=== PATIENT | male | born 1960 | race Asian ===

== ENCOUNTER 2018-03-21 15:45 | Emergency (ER) | payer BC ==
[~2018-03-21] VITALS: Ht 180.3 cm; Wt 90.7 kg
[2018-03-21 18:45] LABS: PLATELET COUNT 308 K/uL (142-355)
[2018-03-21 18:56] LABS: POTASSIUM 4.6 mmol/L (3.6-5.2)
[2018-03-21 20:21] VITALS: BP 149/111; TEMP 98.3
== END 2018-03-21 20:22 | disposition home or self-care (01) ==
LOC: ED 15:45
PROVIDERS: Internal Medicine
DX: J40 Bronchitis, not specified as acute or chronic (principal); J44.9 Chronic obstructive pulmonary disease, unspecified; I10 Essential (primary) hypertension; I51.7 Cardiomegaly; R80.9 Proteinuria, unspecified
CPT/HCPCS: 80053; 81000; 85027; 87651; 99283

== ENCOUNTER 2019-09-28 09:25 | Outpatient (CLI) | payer OTHER | END 2019-09-28 19:43 | disposition home or self-care (01) | LOC: RAD 09:25 | DX: I50.9 Heart failure, unspecified (principal); H54.50 Low vision, one eye, unspecified eye ==

== ENCOUNTER 2019-11-03 13:39 | Emergency (ER) | payer OTHER ==
[~2019-11-03] VITALS: Ht 180.3 cm; Wt 77.1 kg
[2019-11-03 15:35] VITALS: BP 105/67; TEMP 98.5
== END 2019-11-03 15:36 | disposition home or self-care (01) ==
LOC: ED 13:39
DX: S39.011A Strain of muscle, fascia and tendon of abdomen, initial encounter (principal)
CPT/HCPCS: 81000; 96372; 99283; J1885

== ENCOUNTER 2020-06-21 11:23 | Outpatient (CLI) | payer OTHER ==
[2020-06-21 11:43] LABS: POTASSIUM 3.6 mmol/L (3.6-5.2)
== END 2020-06-21 20:33 | disposition home or self-care (01) ==
LOC: LABW 11:23
PROVIDERS: ATTEND Physician Assistant
DX: N17.9 Acute kidney failure, unspecified (principal)
CPT/HCPCS: 36415; 80048; 83735

== ENCOUNTER 2020-12-15 21:57 | Observation (INO) | payer OTHER ==
[~2020-12-15] VITALS: Ht 180.3 cm; Wt 91.8 kg
[2020-12-15 22:15] VITALS: BP 109/76; TEMP 97.7
[2020-12-15 22:48] LABS: PLATELET COUNT 208 K/uL (142-355)
[2020-12-15 23:05] LABS: POTASSIUM 4.9 mmol/L (3.6-5.2)
[2020-12-16 04:55] VITALS: BP 109/79; TEMP 96.7; Ht 180.3 cm; Wt 91.8 kg
[2020-12-16 07:23] LABS: POTASSIUM 3.8 mmol/L (3.6-5.2)
[2020-12-16 08:00] VITALS: BP 101/75; TEMP 97.7
[2020-12-16 12:00] VITALS: BP 109/85; TEMP 97.6
[2020-12-16 16:00] VITALS: BP 101/78; TEMP 97.4
[2020-12-16 20:00] VITALS: BP 108/76; TEMP 97.8
[2020-12-17] VITALS: BP 114/77; TEMP 98.4
[2020-12-17 04:00] VITALS: BP 117/76; TEMP 97.5
[2020-12-17 05:49] LABS: PLATELET COUNT 192 K/uL (142-355)
[2020-12-17 05:54] LABS: POTASSIUM 3.4 mmol/L (3.6-5.2)
[2020-12-17 08:00] VITALS: BP 114/82; TEMP 97.9
[2020-12-17 12:00] VITALS: BP 111/74; TEMP 97.9
[2020-12-17 16:00] VITALS: BP 117/91; TEMP 97.7
[2020-12-17 20:00] VITALS: BP 110/80; TEMP 97.5
[2020-12-18 00:26] VITALS: BP 109/64; TEMP 97.7
[2020-12-18 04:00] VITALS: BP 108/81; TEMP 97.8
[2020-12-18 05:29] LABS: PLATELET COUNT 204 K/uL (142-355)
[2020-12-18 05:41] LABS: POTASSIUM 3.2 mmol/L (3.6-5.2)
[2020-12-18 08:00] VITALS: BP 114/75; TEMP 97.9
[2020-12-18] MEDS ORDERED: FUROSEMIDE40 MG PO (11:50)
[2020-12-18] MEDS ORDERED: CARV3.12 PO (11:55)
[2020-12-18] MEDS ORDERED: POTA20TA4 PO (11:55)
[2020-12-18] MEDS ORDERED: APIX1TAB PO (11:55)
== END 2020-12-18 13:00 | disposition home or self-care (01) ==
LOC: ED 21:57 → MED/SURG 12-16 02:54
PROVIDERS: ADMIT Family Medicine; ATTEND Internal Medicine Endocrinology, Diabetes & Metabolism
DX: I13.0 Hypertensive heart and chronic kidney disease with heart failure and stage 1 through stage 4 chronic kidney disease, or unspecified chronic kidney disease (principal); E87.1 Hypo-osmolality and hyponatremia; I25.10 Atherosclerotic heart disease of native coronary artery without angina pectoris; R94.5 Abnormal results of liver function studies; E87.6 Hypokalemia; N18.30 Chronic kidney disease, stage 3 unspecified; I50.9 Heart failure, unspecified; N17.8 Other acute kidney failure
CPT/HCPCS: 36415; 80053; 81000; 82550; 83880; 84484; 85027; 87635; 93005; 96374; 96376; 99220; 99284; G0378; J1940; U0003

== ENCOUNTER 2021-04-02 14:04 | Outpatient (CLI) | payer OTHER ==
[~2021-04-02 14:04] MED LIST: APIX1TAB PO; CARV3.12 PO; FUROSEMIDE40 MG PO; POTA20TA4 PO
== END 2021-04-02 19:22 | disposition home or self-care (01) ==
LOC: RESP 14:04
PROVIDERS: ATTEND Internal Medicine Cardiovascular Disease
DX: Z01.818 Encounter for other preprocedural examination (principal); Q24.9 Congenital malformation of heart, unspecified; I50.9 Heart failure, unspecified

== ENCOUNTER 2021-05-06 11:41 | Outpatient (CLI) | payer OTHER ==
[2021-05-06 12:39] LABS: PLATELET COUNT 526 K/uL (142-355)
[2021-05-06 12:45] LABS: POTASSIUM 3.6 mmol/L (3.6-5.2)
== END 2021-05-06 20:10 | disposition home or self-care (01) ==
LOC: INF 11:41
PROVIDERS: ATTEND Internal Medicine
DX: I50.22 Chronic systolic (congestive) heart failure (principal); Z95.811 Presence of heart assist device; Z79.01 Long term (current) use of anticoagulants
CPT/HCPCS: 36415; 80053; 83735; 85027; 85610

== ENCOUNTER 2021-05-15 11:15 | Outpatient (CLI) | payer OTHER ==
[2021-05-15 11:47] LABS: PLATELET COUNT 428 K/uL (142-355)
[2021-05-15 12:00] LABS: POTASSIUM 3.4 mmol/L (3.6-5.2)
== END 2021-05-15 18:53 | disposition home or self-care (01) ==
LOC: LABW 11:15
PROVIDERS: ATTEND Internal Medicine Cardiovascular Disease
DX: I50.22 Chronic systolic (congestive) heart failure (principal); Z95.811 Presence of heart assist device; Z79.01 Long term (current) use of anticoagulants
CPT/HCPCS: 36415; 80053; 83735; 85027; 85610

== ENCOUNTER 2021-05-29 11:17 | Outpatient (CLI) | payer OTHER | END 2021-05-29 19:12 | disposition home or self-care (01) | LOC: LABW 11:17 | PROVIDERS: ATTEND Internal Medicine | DX: I50.22 Chronic systolic (congestive) heart failure (principal); Z79.01 Long term (current) use of anticoagulants; Z95.811 Presence of heart assist device | CPT/HCPCS: 36415; 85610 ==

== ENCOUNTER 2021-06-10 10:12 | Outpatient (CLI) | payer OTHER | END 2021-06-10 19:52 | disposition home or self-care (01) | LOC: LABW 10:12 | PROVIDERS: ATTEND Internal Medicine | DX: I50.22 Chronic systolic (congestive) heart failure (principal); Z79.01 Long term (current) use of anticoagulants; Z95.811 Presence of heart assist device | CPT/HCPCS: 36415; 85610 ==

== ENCOUNTER 2021-06-17 07:07 | Emergency (ER) | payer OTHER ==
[~2021-06-17] VITALS: Ht 180.3 cm; Wt 74.8 kg
[2021-06-17 07:07] VITALS: TEMP 97.2
[2021-06-17 07:38] LABS: PLATELET COUNT 225 K/uL (142-355)
[2021-06-17 07:53] LABS: PARTIAL THROMBOPLASTIN TIME 32.4 SECONDS (24.5-33.6)
[2021-06-17 07:59] LABS: POTASSIUM 3.4 mmol/L (3.6-5.2)
[2021-06-17 08:59] VITALS: BP 114/97
== END 2021-06-17 09:27 | disposition home or self-care (01) ==
LOC: ED 07:07
PROVIDERS: Hospitalist
PROC: 2Y41X5Z Packing of Nasal Region using Packing Material (ICD-10-PCS; principal; 2021-06-17)
DX: R04.0 Epistaxis (principal)
CPT/HCPCS: 80048; 80320; 85027; 85610; 85730; 99282

== ENCOUNTER 2021-06-24 10:12 | Outpatient (CLI) | payer OTHER | END 2021-06-24 18:57 | disposition home or self-care (01) | LOC: LABW 10:12 | PROVIDERS: ATTEND Internal Medicine | DX: I50.22 Chronic systolic (congestive) heart failure (principal); Z79.01 Long term (current) use of anticoagulants; Z95.811 Presence of heart assist device | CPT/HCPCS: 36415; 85610 ==

== ENCOUNTER 2021-06-27 10:11 | Outpatient (CLI) | payer OTHER | END 2021-06-27 19:29 | disposition home or self-care (01) | LOC: LABW 10:11 | PROVIDERS: ATTEND Internal Medicine | DX: I50.22 Chronic systolic (congestive) heart failure (principal); Z79.01 Long term (current) use of anticoagulants; Z95.811 Presence of heart assist device | CPT/HCPCS: 36415; 85610 ==

== ENCOUNTER 2021-07-01 10:18 | Outpatient (CLI) | payer OTHER | END 2021-07-01 19:01 | disposition home or self-care (01) | LOC: LABW 10:18 | PROVIDERS: ATTEND Internal Medicine | DX: I50.22 Chronic systolic (congestive) heart failure (principal); Z79.01 Long term (current) use of anticoagulants; Z95.811 Presence of heart assist device | CPT/HCPCS: 36415; 85610 ==

== ENCOUNTER 2021-07-15 10:06 | Outpatient (CLI) | payer OTHER | END 2021-07-15 18:57 | disposition home or self-care (01) | LOC: LABW 10:06 | PROVIDERS: ATTEND Internal Medicine | DX: I50.22 Chronic systolic (congestive) heart failure (principal); Z79.01 Long term (current) use of anticoagulants; Z95.811 Presence of heart assist device | CPT/HCPCS: 36415; 85610 ==

== ENCOUNTER → 2021-07-29 | Outpatient (CLI) | payer OTHER | LOC: LABW 10:19 | PROVIDERS: ATTEND Internal Medicine | DX: I50.22 Chronic systolic (congestive) heart failure (principal); Z79.01 Long term (current) use of anticoagulants; Z95.811 Presence of heart assist device | CPT/HCPCS: 36415; 85610 ==

== ENCOUNTER 2021-08-14 09:16 | Outpatient (CLI) | payer OTHER | END 2021-08-14 19:20 | disposition home or self-care (01) | LOC: LABW 09:16 | PROVIDERS: ATTEND Internal Medicine | DX: I50.22 Chronic systolic (congestive) heart failure (principal); Z79.01 Long term (current) use of anticoagulants; Z95.811 Presence of heart assist device | CPT/HCPCS: 36415; 85610 ==

== ENCOUNTER 2021-08-21 09:12 | Outpatient (CLI) | payer OTHER | END 2021-08-21 18:54 | disposition home or self-care (01) | LOC: LABW 09:12 | PROVIDERS: ATTEND Internal Medicine | DX: I50.22 Chronic systolic (congestive) heart failure (principal); Z79.01 Long term (current) use of anticoagulants; Z95.811 Presence of heart assist device | CPT/HCPCS: 36415; 85610 ==

== ENCOUNTER 2021-09-04 10:28 | Outpatient (CLI) | payer OTHER | END 2021-09-04 18:54 | disposition home or self-care (01) | LOC: LABW 10:28 | PROVIDERS: ATTEND Internal Medicine | DX: I50.22 Chronic systolic (congestive) heart failure (principal); Z79.01 Long term (current) use of anticoagulants; Z95.811 Presence of heart assist device | CPT/HCPCS: 36415; 85610 ==

== ENCOUNTER 2021-09-12 10:03 | Outpatient (CLI) | payer OTHER | END 2021-09-12 19:04 | disposition home or self-care (01) | LOC: LABW 10:03 | PROVIDERS: ATTEND Internal Medicine | DX: I50.22 Chronic systolic (congestive) heart failure (principal); Z79.01 Long term (current) use of anticoagulants; Z95.811 Presence of heart assist device | CPT/HCPCS: 36415; 85610 ==

== ENCOUNTER 2021-09-18 10:07 | Outpatient (CLI) | payer OTHER | END 2021-09-18 19:18 | disposition home or self-care (01) | LOC: LABW 10:07 | PROVIDERS: ATTEND Internal Medicine | DX: I50.22 Chronic systolic (congestive) heart failure (principal); Z79.01 Long term (current) use of anticoagulants; Z95.811 Presence of heart assist device | CPT/HCPCS: 36415; 85610 ==

== ENCOUNTER 2021-10-02 09:38 | Outpatient (CLI) | payer OTHER | END 2021-10-02 19:22 | disposition home or self-care (01) | LOC: LABW 09:38 | PROVIDERS: ATTEND Internal Medicine | DX: I50.22 Chronic systolic (congestive) heart failure (principal); Z79.01 Long term (current) use of anticoagulants; Z95.811 Presence of heart assist device | CPT/HCPCS: 36415; 85610 ==

== ENCOUNTER 2021-10-08 09:19 | Outpatient (CLI) | payer OTHER | END 2021-10-08 21:34 | disposition home or self-care (01) | LOC: LABW 09:19 | PROVIDERS: ATTEND Internal Medicine | DX: I50.22 Chronic systolic (congestive) heart failure (principal); Z79.01 Long term (current) use of anticoagulants; Z95.811 Presence of heart assist device | CPT/HCPCS: 36415; 85610 ==

== ENCOUNTER 2021-10-17 09:17 | Outpatient (CLI) | payer OTHER | END 2021-10-17 19:23 | disposition home or self-care (01) | LOC: LABW 09:17 | PROVIDERS: ATTEND Internal Medicine | DX: I50.22 Chronic systolic (congestive) heart failure (principal); Z79.01 Long term (current) use of anticoagulants; Z95.811 Presence of heart assist device | CPT/HCPCS: 36415; 85610 ==

== ENCOUNTER 2021-10-23 09:09 | Outpatient (CLI) | payer OTHER | END 2021-10-23 18:56 | disposition home or self-care (01) | LOC: LABW 09:09 | PROVIDERS: ATTEND Internal Medicine | DX: I50.22 Chronic systolic (congestive) heart failure (principal); Z79.01 Long term (current) use of anticoagulants; Z95.811 Presence of heart assist device | CPT/HCPCS: 85610 ==

== ENCOUNTER 2021-10-30 07:46 | Outpatient (CLI) | payer OTHER | END 2021-10-30 19:03 | disposition home or self-care (01) | LOC: LABW 07:46 | PROVIDERS: ATTEND Internal Medicine | DX: I50.22 Chronic systolic (congestive) heart failure (principal); Z79.01 Long term (current) use of anticoagulants; Z95.811 Presence of heart assist device | CPT/HCPCS: 36415; 85610 ==

== ENCOUNTER 2021-11-21 08:01 | Outpatient (CLI) | payer OTHER | END 2021-11-21 19:22 | disposition home or self-care (01) | LOC: LABW 08:01 | PROVIDERS: ATTEND Internal Medicine | DX: I50.22 Chronic systolic (congestive) heart failure (principal); Z79.01 Long term (current) use of anticoagulants; Z95.811 Presence of heart assist device | CPT/HCPCS: 36415; 85610 ==

== ENCOUNTER → 2021-11-26 | Outpatient (CLI) | payer OTHER | LOC: LABW 10:25 | PROVIDERS: ATTEND Internal Medicine | DX: I50.22 Chronic systolic (congestive) heart failure (principal); Z79.01 Long term (current) use of anticoagulants; Z95.811 Presence of heart assist device | CPT/HCPCS: 85610 ==

== ENCOUNTER 2021-12-03 07:49 | Outpatient (CLI) | payer OTHER | END 2021-12-03 19:28 | disposition home or self-care (01) | LOC: LABW 07:49 | PROVIDERS: ATTEND Internal Medicine | DX: I50.22 Chronic systolic (congestive) heart failure (principal); Z79.01 Long term (current) use of anticoagulants; Z95.811 Presence of heart assist device | CPT/HCPCS: 85610 ==

== ENCOUNTER 2021-12-10 07:57 | Outpatient (CLI) | payer OTHER | END 2021-12-10 20:28 | disposition home or self-care (01) | LOC: LABW 07:57 | PROVIDERS: ATTEND Internal Medicine | DX: I50.22 Chronic systolic (congestive) heart failure (principal); Z79.01 Long term (current) use of anticoagulants; Z95.811 Presence of heart assist device | CPT/HCPCS: 36415; 85610 ==

== ENCOUNTER 2021-12-17 08:47 | Outpatient (CLI) | payer OTHER | END 2021-12-17 18:54 | disposition home or self-care (01) | LOC: LABW 08:47 | PROVIDERS: ATTEND Internal Medicine | DX: I50.22 Chronic systolic (congestive) heart failure (principal); Z79.01 Long term (current) use of anticoagulants; Z95.811 Presence of heart assist device | CPT/HCPCS: 36415; 85610 ==

== ENCOUNTER → 2021-12-24 | Outpatient (CLI) | payer OTHER | LOC: LABW 08:19 | PROVIDERS: ATTEND Internal Medicine | DX: I50.22 Chronic systolic (congestive) heart failure (principal); Z79.01 Long term (current) use of anticoagulants; Z95.811 Presence of heart assist device | CPT/HCPCS: 36415; 85610 ==

== ENCOUNTER 2022-01-07 07:50 | Outpatient (CLI) | payer OTHER | END 2022-01-07 19:53 | disposition home or self-care (01) | LOC: LABW 07:50 | PROVIDERS: ATTEND Internal Medicine | DX: I50.22 Chronic systolic (congestive) heart failure (principal); Z79.01 Long term (current) use of anticoagulants; Z95.811 Presence of heart assist device | CPT/HCPCS: 36415; 85610 ==

== ENCOUNTER 2022-01-14 07:51 | Outpatient (CLI) | payer OTHER | END 2022-01-14 20:10 | disposition home or self-care (01) | LOC: LABW 07:51 | PROVIDERS: ATTEND Internal Medicine | DX: I50.22 Chronic systolic (congestive) heart failure (principal); Z79.01 Long term (current) use of anticoagulants; Z95.811 Presence of heart assist device | CPT/HCPCS: 36415; 85610 ==

== ENCOUNTER 2022-01-21 07:57 | Outpatient (CLI) | payer OTHER | END 2022-01-21 20:56 | disposition home or self-care (01) | LOC: LABW 07:57 | PROVIDERS: ATTEND Internal Medicine | DX: I50.22 Chronic systolic (congestive) heart failure (principal); Z79.01 Long term (current) use of anticoagulants; Z95.811 Presence of heart assist device | CPT/HCPCS: 36415; 85610 ==

== ENCOUNTER 2022-01-28 07:47 | Outpatient (CLI) | payer OTHER | END 2022-01-28 19:34 | disposition home or self-care (01) | LOC: LABW 07:47 | PROVIDERS: ATTEND Internal Medicine | DX: I50.22 Chronic systolic (congestive) heart failure (principal); Z79.01 Long term (current) use of anticoagulants; Z95.811 Presence of heart assist device | CPT/HCPCS: 36415; 85610 ==

== ENCOUNTER 2022-01-31 07:51 | Outpatient (CLI) | payer OTHER | END 2022-01-31 19:00 | disposition home or self-care (01) | LOC: LABW 07:51 | PROVIDERS: ATTEND Internal Medicine | DX: I50.22 Chronic systolic (congestive) heart failure (principal); Z79.01 Long term (current) use of anticoagulants; Z95.811 Presence of heart assist device | CPT/HCPCS: 36415; 85610 ==

== ENCOUNTER 2022-02-11 07:52 | Outpatient (CLI) | payer OTHER | END 2022-02-11 19:01 | disposition home or self-care (01) | LOC: LABW 07:52 | PROVIDERS: ATTEND Internal Medicine | DX: I50.22 Chronic systolic (congestive) heart failure (principal); Z79.01 Long term (current) use of anticoagulants; Z95.811 Presence of heart assist device | CPT/HCPCS: 36415; 85610 ==

== ENCOUNTER 2022-02-18 08:08 | Outpatient (CLI) | payer OTHER | END 2022-02-18 22:17 | disposition home or self-care (01) | LOC: LABW 08:08 | PROVIDERS: ATTEND Internal Medicine | DX: I50.22 Chronic systolic (congestive) heart failure (principal); Z79.01 Long term (current) use of anticoagulants; Z95.811 Presence of heart assist device | CPT/HCPCS: 36415; 85610 ==

== ENCOUNTER 2022-02-25 07:55 | Outpatient (CLI) | payer OTHER | END 2022-02-25 18:56 | disposition home or self-care (01) | LOC: LABW 07:55 | PROVIDERS: ATTEND Internal Medicine | DX: I50.22 Chronic systolic (congestive) heart failure (principal); Z79.01 Long term (current) use of anticoagulants; Z95.811 Presence of heart assist device | CPT/HCPCS: 36415; 85610 ==

== ENCOUNTER 2022-03-04 08:15 | Outpatient (CLI) | payer OTHER | END 2022-03-04 20:32 | disposition home or self-care (01) | LOC: LABW 08:15 | PROVIDERS: ATTEND Internal Medicine | DX: I50.22 Chronic systolic (congestive) heart failure (principal); Z79.01 Long term (current) use of anticoagulants; Z95.811 Presence of heart assist device | CPT/HCPCS: 36415; 85610 ==

== ENCOUNTER 2022-03-11 08:20 | Outpatient (CLI) | payer OTHER | END 2022-03-11 19:13 | disposition home or self-care (01) | LOC: LABW 08:20 | PROVIDERS: ATTEND Internal Medicine | DX: I50.22 Chronic systolic (congestive) heart failure (principal); Z79.01 Long term (current) use of anticoagulants; Z95.811 Presence of heart assist device | CPT/HCPCS: 36415; 85610 ==

== ENCOUNTER 2022-03-18 08:26 | Outpatient (CLI) | payer OTHER | END 2022-03-18 19:28 | disposition home or self-care (01) | LOC: LABW 08:26 | PROVIDERS: ATTEND Internal Medicine | DX: I50.22 Chronic systolic (congestive) heart failure (principal); Z79.01 Long term (current) use of anticoagulants; Z95.811 Presence of heart assist device | CPT/HCPCS: 36415; 85610 ==

== ENCOUNTER 2022-04-01 08:45 | Outpatient (CLI) | payer OTHER | END 2022-04-01 23:06 | disposition home or self-care (01) | LOC: LABW 08:45 | PROVIDERS: ATTEND Internal Medicine | DX: I50.22 Chronic systolic (congestive) heart failure (principal); Z79.01 Long term (current) use of anticoagulants; Z95.811 Presence of heart assist device | CPT/HCPCS: 36415; 85610 ==

== ENCOUNTER 2022-04-08 08:31 | Outpatient (CLI) | payer OTHER | END 2022-04-08 19:35 | disposition home or self-care (01) | LOC: LABW 08:31 | PROVIDERS: ATTEND Internal Medicine | DX: I50.22 Chronic systolic (congestive) heart failure (principal); Z79.01 Long term (current) use of anticoagulants; Z95.811 Presence of heart assist device | CPT/HCPCS: 36415; 85610 ==

== ENCOUNTER 2022-04-10 11:48 | Emergency (ER) | payer OTHER ==
[~2022-04-10] VITALS: Ht 180.3 cm; Wt 79.4 kg
[2022-04-10 12:46] LABS: POTASSIUM 3.9 mmol/L (3.6-5.2)
[2022-04-10 12:50] LABS: PLATELET COUNT 264 K/uL (142-355)
[2022-04-10 13:13] LABS: PARTIAL THROMBOPLASTIN TIME 35.7 SECONDS (24.5-33.6)
[2022-04-11 09:35] VITALS: BP 106/80; TEMP 98.2
== END 2022-04-11 10:52 | disposition short-term general hospital (02) ==
LOC: ED 11:48
PROVIDERS: Emergency Medicine
DX: R94.5 Abnormal results of liver function studies (principal); R79.89 Other specified abnormal findings of blood chemistry; R77.8 Other specified abnormalities of plasma proteins; J10.1 Influenza due to other identified influenza virus with other respiratory manifestations; D68.8 Other specified coagulation defects; Z11.52 Encounter for screening for COVID-19; I50.9 Heart failure, unspecified
CPT/HCPCS: 80053; 81000; 83880; 84484; 85027; 85610; 85730; 87502; 87635; 93005; 94664; 99284; U0003

== ENCOUNTER 2022-04-22 07:50 | Outpatient (CLI) | payer OTHER | END 2022-04-22 18:55 | disposition home or self-care (01) | LOC: LABW 07:50 | PROVIDERS: ATTEND Internal Medicine | DX: I50.22 Chronic systolic (congestive) heart failure (principal); Z79.01 Long term (current) use of anticoagulants; Z95.811 Presence of heart assist device | CPT/HCPCS: 36415; 85610 ==

== ENCOUNTER 2022-05-01 08:06 | Outpatient (CLI) | payer OTHER | END 2022-05-01 17:00 | disposition home or self-care (01) | LOC: LAB 08:06 | PROVIDERS: ATTEND Internal Medicine | DX: I50.22 Chronic systolic (congestive) heart failure (principal); Z79.01 Long term (current) use of anticoagulants; Z95.811 Presence of heart assist device | CPT/HCPCS: 36415; 85610 ==

== ENCOUNTER 2022-05-06 07:57 | Outpatient (CLI) | payer OTHER | END 2022-05-06 19:23 | disposition home or self-care (01) | LOC: LABW 07:57 | PROVIDERS: ATTEND Internal Medicine | DX: I50.22 Chronic systolic (congestive) heart failure (principal); Z79.01 Long term (current) use of anticoagulants; Z95.811 Presence of heart assist device | CPT/HCPCS: 36415; 85610 ==

== ENCOUNTER 2022-05-13 07:42 | Outpatient (CLI) | payer OTHER | END 2022-05-13 19:04 | disposition home or self-care (01) | LOC: LABW 07:42 | PROVIDERS: ATTEND Internal Medicine | DX: I50.22 Chronic systolic (congestive) heart failure (principal); Z79.01 Long term (current) use of anticoagulants; Z95.811 Presence of heart assist device | CPT/HCPCS: 36415; 85610 ==

== ENCOUNTER 2022-05-20 07:41 | Outpatient (CLI) | payer OTHER | END 2022-05-20 19:16 | disposition home or self-care (01) | LOC: LABW 07:41 | PROVIDERS: ATTEND Internal Medicine | DX: I50.22 Chronic systolic (congestive) heart failure (principal); Z79.01 Long term (current) use of anticoagulants; Z95.811 Presence of heart assist device | CPT/HCPCS: 36415; 85610 ==

== ENCOUNTER 2022-05-27 07:49 | Outpatient (CLI) | payer OTHER | END 2022-05-27 22:02 | LOC: LABW 07:49 | PROVIDERS: ATTEND Internal Medicine | DX: I50.22 Chronic systolic (congestive) heart failure (principal); Z79.01 Long term (current) use of anticoagulants; Z95.811 Presence of heart assist device | CPT/HCPCS: 36415; 85610 ==

== ENCOUNTER 2022-06-03 07:36 | Outpatient (CLI) | payer OTHER | END 2022-06-03 19:11 | disposition home or self-care (01) | LOC: LABW 07:36 | PROVIDERS: ATTEND Internal Medicine | DX: I50.22 Chronic systolic (congestive) heart failure (principal); Z79.01 Long term (current) use of anticoagulants; Z95.811 Presence of heart assist device | CPT/HCPCS: 36415; 85610 ==

== ENCOUNTER 2022-06-10 07:50 | Outpatient (CLI) | payer OTHER | END 2022-06-10 20:50 | LOC: LABW 07:50 | PROVIDERS: ATTEND Internal Medicine | DX: I50.22 Chronic systolic (congestive) heart failure (principal); Z79.01 Long term (current) use of anticoagulants; Z95.811 Presence of heart assist device | CPT/HCPCS: 36415; 85610 ==

== ENCOUNTER 2022-07-01 07:46 | Outpatient (CLI) | payer OTHER | END 2022-07-01 18:55 | disposition home or self-care (01) | LOC: LABW 07:46 | PROVIDERS: ATTEND Internal Medicine | DX: I50.22 Chronic systolic (congestive) heart failure (principal); Z79.01 Long term (current) use of anticoagulants; Z95.811 Presence of heart assist device | CPT/HCPCS: 36415; 85610 ==

== ENCOUNTER 2022-07-08 07:46 | Outpatient (CLI) | payer OTHER | END 2022-07-08 19:55 | disposition home or self-care (01) | LOC: LABW 07:46 | PROVIDERS: ATTEND Internal Medicine | DX: I50.22 Chronic systolic (congestive) heart failure (principal); Z79.01 Long term (current) use of anticoagulants; Z95.811 Presence of heart assist device | CPT/HCPCS: 36415; 85610 ==

== ENCOUNTER 2022-07-22 07:37 | Outpatient (CLI) | payer OTHER | END 2022-07-22 20:33 | disposition home or self-care (01) | LOC: LABW 07:37 | PROVIDERS: ATTEND Internal Medicine | DX: I50.22 Chronic systolic (congestive) heart failure (principal); Z79.01 Long term (current) use of anticoagulants; Z95.811 Presence of heart assist device | CPT/HCPCS: 36415; 85610 ==

== ENCOUNTER 2022-07-31 07:52 | Outpatient (CLI) | payer OTHER | END 2022-07-31 19:08 | disposition home or self-care (01) | LOC: LABW 07:52 | PROVIDERS: ATTEND Internal Medicine | DX: I50.22 Chronic systolic (congestive) heart failure (principal); Z79.01 Long term (current) use of anticoagulants; Z95.811 Presence of heart assist device | CPT/HCPCS: 36415; 85610 ==

== ENCOUNTER 2022-08-06 08:35 | Outpatient (CLI) | payer OTHER | END 2022-08-06 22:04 | disposition home or self-care (01) | LOC: LABW 08:35 | PROVIDERS: ATTEND Internal Medicine | DX: I50.22 Chronic systolic (congestive) heart failure (principal); Z79.01 Long term (current) use of anticoagulants; Z95.811 Presence of heart assist device | CPT/HCPCS: 36415; 85610 ==

== ENCOUNTER 2022-08-14 08:11 | Outpatient (CLI) | payer OTHER | END 2022-08-14 18:58 | disposition home or self-care (01) | LOC: LABW 08:11 | PROVIDERS: ATTEND Internal Medicine | DX: I50.22 Chronic systolic (congestive) heart failure (principal); Z79.01 Long term (current) use of anticoagulants; Z95.811 Presence of heart assist device | CPT/HCPCS: 36415; 85610 ==

== ENCOUNTER 2022-08-27 08:01 | Outpatient (CLI) | payer OTHER | END 2022-08-27 18:58 | disposition home or self-care (01) | LOC: LABW 08:01 | PROVIDERS: ATTEND Internal Medicine | DX: I50.22 Chronic systolic (congestive) heart failure (principal); Z79.01 Long term (current) use of anticoagulants; Z95.811 Presence of heart assist device | CPT/HCPCS: 36415; 85610 ==

== ENCOUNTER 2022-09-10 07:46 | Outpatient (CLI) | payer OTHER | END 2022-09-10 19:55 | disposition home or self-care (01) | LOC: LABW 07:46 | PROVIDERS: ATTEND Internal Medicine | DX: I50.22 Chronic systolic (congestive) heart failure (principal); Z79.01 Long term (current) use of anticoagulants; Z95.811 Presence of heart assist device | CPT/HCPCS: 36415; 85610 ==

== ENCOUNTER 2022-09-17 08:06 | Outpatient (CLI) | payer OTHER | END 2022-09-17 21:00 | disposition home or self-care (01) | LOC: LABW 08:06 | PROVIDERS: ATTEND Internal Medicine | DX: I50.22 Chronic systolic (congestive) heart failure (principal); Z79.01 Long term (current) use of anticoagulants; Z95.811 Presence of heart assist device | CPT/HCPCS: 85610 ==

== ENCOUNTER 2022-09-24 07:49 | Outpatient (CLI) | payer OTHER | END 2022-09-24 19:03 | disposition home or self-care (01) | LOC: LABW 07:49 | PROVIDERS: ATTEND Internal Medicine | DX: I50.22 Chronic systolic (congestive) heart failure (principal); Z79.01 Long term (current) use of anticoagulants; Z95.811 Presence of heart assist device | CPT/HCPCS: 36415; 85610 ==

== ENCOUNTER 2022-10-01 07:37 | Outpatient (CLI) | payer OTHER | END 2022-10-01 19:01 | disposition home or self-care (01) | LOC: LABW 07:37 | PROVIDERS: ATTEND Internal Medicine | DX: I50.22 Chronic systolic (congestive) heart failure (principal); Z79.01 Long term (current) use of anticoagulants; Z95.811 Presence of heart assist device | CPT/HCPCS: 36415; 85610 ==

== ENCOUNTER 2022-10-08 07:44 | Outpatient (CLI) | payer OTHER | END 2022-10-08 18:55 | disposition home or self-care (01) | LOC: LABW 07:44 | PROVIDERS: ATTEND Internal Medicine | DX: I50.22 Chronic systolic (congestive) heart failure (principal); Z79.01 Long term (current) use of anticoagulants; Z95.811 Presence of heart assist device | CPT/HCPCS: 36415; 85610 ==

== ENCOUNTER 2022-10-15 08:47 | Outpatient (CLI) | payer OTHER | END 2022-10-15 21:18 | disposition home or self-care (01) | LOC: LABW 08:47 | PROVIDERS: ATTEND Internal Medicine | DX: I50.22 Chronic systolic (congestive) heart failure (principal); Z79.01 Long term (current) use of anticoagulants; Z95.811 Presence of heart assist device | CPT/HCPCS: 36415; 85610 ==

== ENCOUNTER 2022-10-22 07:48 | Outpatient (CLI) | payer OTHER | END 2022-10-22 19:08 | disposition home or self-care (01) | LOC: LABW 07:48 | PROVIDERS: ATTEND Internal Medicine | DX: I50.22 Chronic systolic (congestive) heart failure (principal); Z79.01 Long term (current) use of anticoagulants; Z95.811 Presence of heart assist device | CPT/HCPCS: 36415; 85610 ==

== ENCOUNTER 2022-10-30 08:08 | Outpatient (CLI) | payer OTHER | END 2022-10-30 19:24 | disposition home or self-care (01) | LOC: LABW 08:08 | PROVIDERS: ATTEND Internal Medicine | DX: I50.22 Chronic systolic (congestive) heart failure (principal); Z79.01 Long term (current) use of anticoagulants; Z95.811 Presence of heart assist device | CPT/HCPCS: 36415; 85610 ==

== ENCOUNTER 2022-12-12 08:18 | Outpatient (CLI) | payer OTHER | END 2022-12-12 19:22 | disposition home or self-care (01) | LOC: LABW 08:18 | PROVIDERS: ATTEND Internal Medicine | DX: I50.22 Chronic systolic (congestive) heart failure (principal); Z79.01 Long term (current) use of anticoagulants; Z95.811 Presence of heart assist device | CPT/HCPCS: 36415; 85610 ==